=== PATIENT | female | born 1955 | race African-American/Black ===

== ENCOUNTER 2021-06-23 09:21 | Outpatient (CLI) | payer OTHER ==
[2021-06-23 22:24] LABS: SARS-CoV-2 PCR by NAA Not Detected (NotDetected)
== END 2021-06-23 09:22 | disposition home or self-care (01) ==
LOC: CSHLAB 09:21
PROVIDERS: ATTEND Student in an Organized Health Care Education/Training Program
DX: Z20.822 Contact with and (suspected) exposure to COVID-19 (principal); J44.9 Chronic obstructive pulmonary disease, unspecified
CPT/HCPCS: U0003; U0005